=== PATIENT | male | born 1990 | race Caucasian/White ===

== ENCOUNTER 2017-02-18 05:44 | Emergency (ER) | payer SELFPAY ==
[2017-02-18 06:09] VITALS: BP 151/110; PULSE 108; RESP 17; TEMP 98.6; O2SAT 98
[2017-02-18] MEDS ORDERED: Lidocaine 2% w Epi 1:100,000 Inj IJ ONE (06:17)
[2017-02-18] MEDS ORDERED: TDAP Vaccine 0.5 mL Syr IM ONE (06:46)
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
== END 2017-02-18 07:06 | disposition home or self-care (01) ==
LOC: H.ER 05:44
DX: S51.811A Laceration without foreign body of right forearm, initial encounter (principal); X99.1XXA Assault by knife, initial encounter; Y92.89 Other specified places as the place of occurrence of the external cause; Z87.891 Personal history of nicotine dependence